=== PATIENT | female | born 1960 | race Caucasian/White ===

== ENCOUNTER → 2021-08-14 13:19 | Outpatient (BNVA) | payer OTHER, SELFPAY | PROVIDERS: Visit Provider Nurse Practitioner | DX: G31.09 Other frontotemporal neurocognitive disorder (principal); F02.80 Dementia in other diseases classified elsewhere, unspecified severity, without behavioral disturbance, psychotic disturbance, mood disturbance, and anxiety; R45.1 Restlessness and agitation | CPT/HCPCS: 99203; 99204 ==

== ENCOUNTER 2021-08-17 08:35 | Emergency (ER) | payer OTHER, SELFPAY ==
--- NOTE | 2021-08-17 08:42 | ED_ITS ---
HPI - Abdominal Pain General: Chief Complaint: Abdominal Pain Stated Complaint: BOWEL PROBLEMS/PSYCH Time Seen by Provider: 08/17/21 08:38 History of Present Illness: HPI narrative: 61-year-old female with a history of early frontal lobe dementia presents to the emergency room with her . Main complaint is constipation. He states she has not had bowel movement for several days recently started new medication and is on Seroquel which actually seems to be making worse they have tried MiraLAX and Pepto-Bismol with no results. Patient and her recently moved to this area from [place] they are currently living in a hotel waiting to take possession of their home. She not recently been ill with fever sweats or chills although according to the her normal temperature is 97 and her temp at home has been 99 even when she perceived to be a fever. She is not complaining any dysuria urgency or frequency there has been no vomiting she has had minimal results with the attempts to stimulate bowel movement. No reports of chest pain. Patient is not able to give much in terms of answers for questions. MD elicited complaint: abdominal pain Pertinent past history: constipation and other (Dementia) Onset (ago): day(s) Pain Consistency: intermittent Quality: cramping Exacerbating factors: nothing Relieving factors: nothing Associated Symptoms: Reports anorexia, bloating, change in bowel habits, constipation, GI cramping and poor appetite; Denies belching, change in stool character, chills, coffee ground emesis, diarrhea, dyspepsia, dysuria, excessive flatus, fever(s), heartburn, hematochezia, hematuria, hematemesis, fecal incontinence, loose stools, melena, nausea, syncope and vomiting Review of Systems Const: Denies: fever(s) or chills ENMT: Denies: throat pain, ear or mastoid pain, nasal discharge or nasal congestion Card: Denies: syncope Resp: Denies: dyspnea, productive cough or non-productive cough GI: Reports: constipation, bloating, GI cramping and change in bowel habits; Denies: nausea, vomiting, hematemesis, coffee ground emesis, heartburn, diarrhea, belching, excessive flatus, fecal incontinence, change in stool character, hematochezia or melena : Denies: dysuria or hematuria Skin/Breast: Denies: rash or pruritus PFSH ED PFSH: Medical History Frontal lobe dementia Family History Grandfather Diabetes Grandmother Diabetes Social History Smoking and tobacco status: never smoked Physical Exam Const: COMMON NORMALS: no acute distress GENERAL APPEARANCE: cooperative and comfortable ORIENTATION/CONSCIOUSNESS: Yes awake HENMT: COMMON NORMALS: normocephalic, atraumatic and hearing grossly normal bilaterally HEAD & SCALP: normocephalic and atraumatic Neck/C-Spine: COMMON NORMALS: no JVD Resp: COMMON NORMALS: normal respiratory effort, No retractions, No use of accessory muscles and clear to auscultation bilaterally AUSCULTATION: clear to auscultation bilaterally Cardio: COMMON NORMALS: no JVD, regular rate, regular rhythm and No murmurs present (Cardio) RATE: regular rate RHYTHM: regular rhythm GI: COMMON NORMALS: Soft to palpation and No hepatosplenomegaly present A USCULTATION: Yes normoactive bowel sounds PALPATION: Yes Soft to palpation, No Tenderness to palpation present (GI), No Guarding due to palpation present (GI) and Yes No hepatosplenomegaly present Extremity: COMMON NORMALS: normal to inspection, capillary refill normal, no clubbing, cyanosis or edema, no calf tenderness and no pedal edema Skin: COMMON NORMALS: no rashes or lesions noted GENERAL SKIN EXAM: no rashes or lesions noted Course Vital Signs: Vital signs: Vital Signs Temperature 99.2 F 08/17/21 12:15 Pulse Rate 92 08/17/21 15:00 Respiratory Rate 16 08/17/21 15:00 Blood Pressure 119/65 08/17/21 12:15 Pulse Oximetry 100 08/17/21 15:00 MDM - Abdominal Pain MDM Narrative: Medical decision making narrative: Patient has urinary retention as well as significant constipation there is also question of some swelling soft tissue fullness between the sacrum and the rectosigmoid region. Some of it may be caused by irritation from the constipation. We did place a Tobias and got out 1500 mL however with enema we were not able to get any results. We made plans to discharge patient home to use mag citrate for further relief of constipation the patient began to have worsening sundowning symptoms. Initially gave the usual antipsychotic she has been prescribed she had only minimal improvement with this and at times became even combative her was trying to help her off the bed and she fell on the floor he called to us we were able to get her up she had no evidence of an injury on reexamination. Sitter was placed on the patient patient was placed in reverse Trendelenburg position in bed to prevent further falls with the rails up. Were going to make arrangements for [facility]. She will need adjustments to her medications for her behaviors as well as the side effect she is getting on the current medication regimen. Care turned over to Dr. Cano at change of shift we are still looking for [facility] placement. Care assumed this morning and 08/18/2021 at 6 AM. [facility] placement has been found. We will transfer due to lack of [facility] at our facility. Patient doing well at this point Tobias has been removed she is not had any further urinary retention. Lab Data: Labs: Lab Results 08/17/21 08/17/21 08/17/21 09:11 09:11 09:11 WBC 11.1 10^3/uL H 10 ^3/uL (4.0-10.0) RBC 5.61 10^6/uL H 10 ^6/uL (4.1-5.3) Hgb 12.0 g/dL g/dL (11.5-15.3) Hct 37.3 % % (37.0-47.0) MCV 66.5 fl L fl (81-99) MCH 21.4 pg L pg (28.0-34.0) MCHC 32.2 g/dL g/dL (30.0-36.0) RDW 14.3 % % (12.1-15.1) Plt Count 190 10^3/cmm 10^3 /cmm (130-400) MPV 10.5 fL H fL (7.4-10.4) Neut % (Auto) 83.9 % % Lymph % (Auto) 7.4 % % [place] % (Auto) 8.0 % % Eos % (Auto) 0.1 % % Baso % (Auto) 0.1 % % Neut # (Auto) 9.29 10^3/uL H 10 ^3/uL (1.8-7.7) Lymph # (Auto) 0.8 10^3/uL 10^3/ uL (0.8-4.8) [place] # (Auto) 0.9 10^3/uL 10^3/ uL (0.2-0.9) Eos # (Auto) 0.0 10^3/uL 10^3/ uL (0.0-0.8) Baso # (Auto) 0.0 10^3/uL 10^3/ uL (0.0-0.1) Nucleated RBC % (a uto) 0 % % Nucleated RBCs # 0.0 /100WBC /100W BC Sodium 138 mmol/L mmol/L (136-145) Potassium 3.9 mmol/L mmol/L (3.5-5.1) Chloride 98 mmol/L mmol/L (98-107) Carbon Dioxide 29 mmol/L mmol/L (22-29) Anion Gap 14.9 (5-19) BUN 11 mg/dL mg/dL (8-23) Creatinine 0.5 mg/dL mg/dL (0.5-0.9) GFR Calculation 125.0 mL/min mL/m in (90-130) Glucose 104 mg/dL mg/dL (65-115) Calculated Osmolal ity 286 mOsm/kg mOsm/ kg (285-295) Lactic Acid 1.0 mmol/L mmol/L (0.5-2.2) Calcium 9.2 mg/dL mg/dL (8.5-10.5) Total Bilirubin 1.1 mg/dL mg/dL (0.15-1.2) AST 26 U/L U/L (0-32) ALT 13 U/L U/L (0-33) Alkaline Phosphata se 71 IU/L IU/L (35-105) Total Protein 7.0 g/dL g/dL (6.6-8.7) Albumin 4.3 g/dL g/dL (3.5-5.2) Globulin 2.7 g/dL g/dL (1.3-4.6) Lipase 26 U/L U/L (13-60) TSH Urine Color Urine Appearance Urine pH Ur Specific Gravit y Urine Protein Urine Glucose (UA) Urine Ketones Urine Blood Urine Nitrate Urine Bilirubin Urine Urobilinogen Ur Leukocyte Mala ase Salicylates Acetaminophen SARS-CoV-2 Ag (Rap id) 08/17/21 08/17/21 08/17/21 09:11 12:19 18:15 WBC RBC Hgb Hct MCV MCH MCHC RDW Plt Count MPV Neut % (Auto) Lymph % (Auto) [place] % (Auto) Eos % (Auto) Baso % (Auto) Neut # (Auto) Lymph # (Auto) [place] # (Auto) Eos # (Auto) Baso # (Auto) Nucleated RBC % (a uto) Nucleated RBCs # Sodium Potassium Chloride Carbon Dioxide Anion Gap BUN Creatinine GFR Calculation Glucose Calculated Osmolal ity Lactic Acid Calcium Total Bilirubin AST ALT Alkaline Phosphata se Total Protein Albumin Globulin Lipase TSH 0.60 uIU/mL uIU/m L (0.27-4.20) Urine Color Yellow (Yellow) Urine Appearance Clear (CLEAR) Urine pH 5 (5-7) Ur Specific Gravit y 1.015 (1.005-1.030) Urine Protein Neg (Negative) Urine Glucose (UA) Norm (Normal) Urine Ketones Negative (Negative) Urine Blood Neg (Negative) Urine Nitrate Negative (Negative) Urine Bilirubin Neg (Negative) Urine Urobilinogen Norm mg/dL mg/dL (Negative) Ur Leukocyte Mala ase Negative (Negative) Salicylates 1.5 mg/dL L mg/dL (3-10) Acetaminophen 15.4 ug/mL ug/mL (10-30) SARS-CoV-2 Ag (Rap id) Negative (Negative) Discharge Plan Discharge Patient Disposition: Xfer Psychiatric Hosp Clinical Impression: Frontal lobe dementia, Rectal mass, Constipation, Urinary retention, Dementia with behavioral disturbance Condition: Stable Discharge Diet: Clear Liquid Discharge Activity: Resume usual activity Activity Restrictions/Additional Instructions: Liquid diet for 24 to 48 hours and advance as tolerated. assistant front desk manager will make arrangements for follow-up with Dr. Walsh who can help further evaluate the findings on today's CT. Coding Level of Care Code ED Launchman for Fabiola Fwd Exam Comprehensive
[2021-08-17 08:44] VITALS: BP 108/70; PULSE 109; RESP 16; TEMP 37.2; O2SAT 98
--- NOTE | 2021-08-17 08:55 | CT_ITS ---
WS: [id number] CT ABDOMEN AND PELVIS WITH CONTRAST HISTORY: Abdominal pain and constipation TECHNIQUE: Imaging performed of the abdomen and pelvis with IV contrast. Single phase imaging of the abdomen. Coronal and sagittal reformats are submitted. All CT scans at [facility] use at [address] one of these dose optimization techniques: automated exposure control; mA and/or kV adjustment per patient size (includes targeted exams where dose is matched to clinical indication); or iterative re construction. IV CONTRAST: Omnipaque 300; 95 mL IV. Oral contrast: No DLP: 889.79 mGy.cm COMPARISON: None available. Lower thorax: Lung bases are clear. Heart is normal size. No hiatal hernia. Liver/biliary system: Normal size liver. There are numerous scattered subcentimeter and too small to characterize hypodensities within the liver. No prior studies for comparison. No bile duct dilatation . Portal vein is normal. Gallbladder: Normal. No gallstones or wall thickening. No pericholecystic fluid. Pancreas: Normal size pancreas and pancreatic duct. No adjacent inflammation. Spleen: Normal size spleen. No mass or infarct. Adrenal glands: Normal. Right kidney: Normal. Left kidney: Normal. Aorta: Normal. Lymphadenopathy: Cluster of lymph nodes in the LEFT pelvis measures 10 x 21 mm. Free fluid: There is a small amount of free fluid in the pelvis and along the LEFT paracolic gutter. GI tract: There is increased density within the colon. Oral contrast was not provided. This may be du e to prior CT obtained outside institution or oral medicine such as Maalox or antacids. Distention of the small bowel the LEFT upper abdomen. There is confluent loops of small bowel in the LEFT upper ab domen which cannot be very well evaluated. The appendix is not definitely visualized. There is diffus e moderate constipation. Inspissated fecal material throughout the colon. At the rectum there are num erous loops of bowel extending distally. Rectocele is likely. There is also significant soft tissue t hickening circumferentially surrounding the rectum and extending into the presacral space. Abdominal wall: Unremarkable abdominal wall. No hernia. Pelvis: Markedly distended urinary bladder. Bladder is distended and measures 13.4 cm in length. No i ntraluminal filling defect. Bones: Unremarkable. CT/CT abdomen pelvis w con* [id number] IMPRESSION: 1. Extensive constipation and obstipation with rectocele likely. 2. There is extensive soft tissue thickening surrounding the rectum and extend ing into the presacral space. Consider malignancy such as a rectal or COLUMNIST/COMMENTATOR carci noma. Small cluster of mildly enlarged lymph nodes in the LEFT pelvis. 3. Small amount of ascites. 4. Numerous low-attenuation lesions within the liver. These are too small to c haracterize. Differential includes small hepatic cysts versus metastases metast atic nodules. 5. Coqui distended urinary bladder. Notified Peyman Jimenez DO at 08/17/2021 10:16 AM.
[2021-08-17 09:32] LABS: Basophils % 0.1 %; Eosinophils % 0.1 %; Hematocrit 37.3 % (37.0-47.0); Lymphocytes # 0.8 10^3/uL (0.8-4.8); Lymphocytes % 7.4 %; Mean Corpuscular HGB Conc 32.2 g/dL (30.0-36.0); Mean Corpuscular Hemoglobin 21.4 pg (28.0-34.0); Mean Corpuscular Volume 66.5 fl (81-99); Mean Platelet Volume 10.5 fL (7.4-10.4); Monocytes # 0.9 10^3/uL (0.2-0.9); Neutrophils # 9.29 10^3/uL (1.8-7.7); Neutrophils % 83.9 %; Nucleated Red Blood Cells % 0 %; Platelet Count 190 10^3/cmm (130-400); Red Blood Count 5.61 10^6/uL (4.1-5.3); Red Cell Distribution Width 14.3 % (12.1-15.1); White Blood Count 11.1 10^3/uL (4.0-10.0)
[2021-08-17 09:50] LABS: Alanine Aminotransferase 13 U/L (0-33); Albumin Level 4.3 g/dL (3.5-5.2); Alkaline Phosphatase 71 IU/L (35-105); Anion Gap 14.9 (5-19); Aspartate Amino Transferase 26 U/L (0-32); Blood Urea Nitrogen 11 mg/dL (8-23); Calcium 9.2 mg/dL (8.5-10.5); Carbon Dioxide 29 mmol/L (22-29); Chloride 98 mmol/L (98-107); Globulin 2.7 g/dL (1.3-4.6); Glucose 104 mg/dL (65-115); Lipase 26 U/L (13-60); Osmolality Calculated 286 mOsm/kg (285-295); Potassium 3.9 mmol/L (3.5-5.1); Sodium 138 mmol/L (136-145); Total Bilirubin 1.1 mg/dL (0.15-1.2)
[2021-08-17] MEDS: iohexol 300 mg/mL 100 mL Btl IV (10:00)
[2021-08-17] MEDS: ondansetron 2 mg/ML SDV 2 mL 4 MG IVP (10:41)
[2021-08-17] MEDS: lidocaine 2% Urojet 20 mL TOPICAL (11:13)
[2021-08-17] MEDS: ketorolac 30 mg/mL INJ IM (12:13)
[2021-08-17 12:15] VITALS: BP 119/65; PULSE 78; RESP 16; TEMP 37.3; O2SAT 97
[2021-08-17 12:25] LABS: Add Urine Microscopic? NO; Charge for UA Resulting for Rev
[2021-08-17 12:33] LABS: Bilirubin Urine Neg (Negative); Blood Urine Neg (Negative); Glucose Urine UA Norm (Normal); Ketones Urine Negative (Negative); Leukocyte Esterase Urine Negative (Negative); Nitrate Urine Negative (Negative); Protein Urine Neg (Negative); Specific Gravity, Urine 1.015 (1.005-1.030); Urine Appearance Clear (CLEAR); Urine Color Yellow (Yellow); Urobilinogen Urine Norm (Negative); pH Urine 5 (5-7)
--- NOTE | 2021-08-17 14:08 | DCPLANNER ---
Addendum entered by Betina Cuadra 08/18/21 09:30: Patient was transferred to another facility, family service caseworker called the office of Dr. Walsh, and cancelled the scheduled appointment. customer logistics manager called the patients and informed him that family service caseworker cancelled the appointment. Original Note: customer logistics manager had message to schedule a follow up appointment for patient with Dr. Walsh. customer logistics manager called the office of Dr. Walsh, spoke with Adilene, gave clinic patients information. A follow up appointment was scheduled for Saturday, August 21, 2021 at 1:[address] Walsh. Patient was informed with appointment information.
[2021-08-17 15:00] VITALS: PULSE 92; RESP 16; O2SAT 100
[2021-08-17] MEDS: LORazepam 2 mg/mL INJ 1 mL IM (16:00)
--- NOTE | 2021-08-17 16:00 | PC.NURSE ---
upon discharge instruction pt became verbally and emotionally distressed. pt became very paranoid, thinking is trying to lock her away to someone else. pt caused scene in hallway and was taken back to room. ER physican notified and med order recieved.
--- NOTE | 2021-08-17 17:00 | PC.PHAR ---
PTS STATES THE PT DIDNT GET THE RX FOR THE DIAZEPAM 10MG FROM DR LESLIE-PTS STATES THE PT HASNT STARTED TAKING THE DIVALPROEX DR 250MG TID YET-
[2021-08-17 17:59] LABS: Acetaminophen 15.4 ug/mL (10-30); Salicylate 1.5 mg/dL (3-10)
[2021-08-17 18:43] LABS: SARS Covid-2 Antigen Negative (Negative)
[2021-08-17] MEDS: quetiapine 100 mg Tablet PO (20:01)
[2021-08-18] MEDS: LORazepam 2 mg/mL INJ 1 mL IM (02:44)
[2021-08-18] MEDS: haloperidol inj 5 mg/mL INJ 1 mL IVP (03:00)
--- NOTE | 2021-08-18 03:00 | PC.NURSE ---
PT YELLING OUT, ACCUSING STAFF OF PHYSICAL HARM. PT DIFFICULT TO REDIRECT, ATIVAN 2 MG IM ADMINISTERED WITHOUT INCIDENT.
[2021-08-18 07:39] VITALS: BP 95/70; PULSE 85; RESP 15; O2SAT 95
== END 2021-08-18 07:42 ==
PROVIDERS: Emergency Provider Family Medicine
DX: K59.00 Constipation, unspecified (principal); R33.9 Retention of urine, unspecified; K62.9 Disease of anus and rectum, unspecified; G31.09 Other frontotemporal neurocognitive disorder; F02.81 Dementia in other diseases classified elsewhere, unspecified severity, with behavioral disturbance; Z20.822 Contact with and (suspected) exposure to COVID-19
CPT/HCPCS: 36415; 45915; 51702; 51798; 74177; 80053; 80307; 81003; 83605; 83690; 84443; 85025; 87040; 87426; 96372; 96374; 96375; 99284; J1630; J1885; J2060; J2405; Q9967

== ENCOUNTER 2021-09-07 21:03 | Emergency (ER) | payer OTHER, SELFPAY ==
[2021-09-07 21:08] VITALS: BP 98/65; PULSE 100; RESP 18; TEMP 36.2; O2SAT 98; BMI 20.9
--- NOTE | 2021-09-07 21:19 | W.ED.PSYCH ---
HPI - Psych General: Chief Complaint: Psychiatric Symptoms Stated Complaint: MHE Time Seen by Provider: 09/07/21 21:08 Source: patient, family and EMS Mode of arrival: EMS Limitations: no limitations History of Present Illness: HPI Narrative: 61-year-old female has a history of dementia. is here and states that they have just moved to the house 2 days ago and she has been having increasing agitation at night. He states is been try to give her Seroquel but her agitation just increases. He has an appointment psychiatrist along with her PCP next week. She is made no homicidal suicidal statements she is calm and collected here. She will tell me her name and where she is but she does have dementia and has some confusion at times. No injuries. Review of Systems Const: Denies: fever(s), chills, body aches or change in appetite Eyes: Denies: blurry vision or eye discomfort ENMT: Denies: throat pain or dental pain Card: Denies: chest pain Resp: Denies: dyspnea GI: Denies: abdominal pain, nausea, vomiting or diarrhea : Denies: dysuria Musc: Denies: neck pain or back pain Skin/Breast: Denies: rash Neuro: Denies: headache(s) Psych: Reports: mood swings Jesse/Lymph: Denies: easy bruising All/Imm: Denies: urticaria PFS ED PFSH: Medical History (Updated 09/07/21 @ 21:37 by Wilfredo Trevino MD) Frontal lobe dementia Psychiatric care Family History Grandfather Diabetes Grandmother Diabetes Social History Smoking and tobacco status: never smoked Physical Exam Const: COMMON NORMALS: no acute distress, healthy appearing and alert; negative for patient oriented x3 ORIENTATION/CONSCIOUSNESS: Yes oriented to person and Yes oriented to place; not oriented to time HENMT: COMMON NORMALS: normocephalic and atraumatic HEAD & SCALP: normocephalic and atraumatic Eye: COMMON NORMALS: Equal, round and reactive pupils present and EOMs intact bilaterally PUPIL: Yes Equal, round and reactive pupils present Neck/C-Spine: COMMON NORMALS: full ROM and supple Chest: COMMONS NORMALS: normal inspection of the chest and normal palpation of entire chest wall Resp: COMMON NORMALS: normal respiratory effort, No retractions, No use of accessory muscles and clear to auscultation bilaterally AUSCULTATION: clear to auscultation bilaterally Cardio: COMMON NORMALS: regular rate, regular rhythm and No murmurs present (Cardio) RATE: regular rate RHYTHM: regular rhythm GI: COMMON NORMALS: Normal to inspection, nondistended, normoactive bowel sounds present, Soft to palpation, non-tender and no masses PALPATION: Yes Soft to palpation Extremity: COMMON NORMALS: normal to inspection and full ROM Neuro: COMMON NORMALS: moves all extremities and no focal motor deficits; negative for patient oriented x3 SENSORIUM/ORIENTATION: Yes alert, Yes oriented to person, Yes oriented to place and No oriented to time Psych: COMMON NORMALS: mental status grossly normal, Normal thought process present and cooperative THOUGHT PROCESS: Normal thought process present Skin: COMMON NORMALS: no rashes or lesions noted and no wounds GENERAL SKIN EXAM: no rashes or lesions noted Course Vital Signs: Vital signs: Vital Signs Temperature 97.7 F 09/07/21 22:24 Pulse Rate 80 09/07/21 22:24 Respiratory Rate 18 09/07/21 22:24 Blood Pressure 97/55 09/07/21 22:24 Pulse Oximetry 99 09/07/21 22:24 MDM - Psych MDM Narrative: Medical decision making narrative: Patient presents here with agitation likely due to her dementia and moving into a new residence she is calm here and is here and she is stable for discharge with her she had no self-harm and she has follow-up next week she is return if worsening. Discharge Plan Discharge Patient Disposition: Home Clinical Impression: Frontal lobe dementia Condition: Stable Prescriptions: No Action quetiapine [Seroquel] 100 mg tablet 100 mg PO BEDTIME RF: 0 diazepam [Valium] 10 mg tablet 10 mg PO DAILY MDD 1 PRN (Reason: agitation) Qty: 10 RF: 0 quetiapine [Seroquel] 50 mg tablet 50 mg PO Q4H Qty: 180 RF: 2 quetiapine [Seroquel] 25 mg tablet 25 mg PO DAILY PRN (Reason: withdrawal symptoms) Qty: 30 RF: 2 magnesium citrate Solution 150 ml PO BID PRN (Reason: constipation) Qty: 296 RF: 0 Miralax 17 gram/dose powder 17 g PO DAILY Qty: 510 RF: 0 multivitamin Tablet 1 tab PO DAILY RF: 0 Colace 100 mg Capsule 100 mg PO DAILY RF: 0 divalproex 250 mg tablet,delayed release (DR/EC) 250 mg PO TID RF: 0 Discharge Orders: Discharge ED (Routine); Ordered 09/07/21 Ordered By: Wilfredo Trevino Discharge Diet: Advance as tolerated Discharge Activity: Resume usual activity Patient Instructions: Dementia (ED) Coding Level of Care Code ED Cardio Tech for Fabiola Fwd Exam Comprehensive
[2021-09-07] MEDS: haloperidol inj 5 mg/mL INJ 1 mL IM (21:53)
[2021-09-07 22:24] VITALS: BP 97/55; PULSE 80; RESP 18; TEMP 36.5; O2SAT 99
== END 2021-09-07 22:45 | disposition home or self-care (01) ==
PROVIDERS: Emergency Provider Emergency Medicine
DX: G31.09 Other frontotemporal neurocognitive disorder (principal); F02.80 Dementia in other diseases classified elsewhere, unspecified severity, without behavioral disturbance, psychotic disturbance, mood disturbance, and anxiety
CPT/HCPCS: 96372; 99283; J1630

== ENCOUNTER 2021-09-29 12:23 | Emergency (ER) | payer OTHER, SELFPAY ==
[2021-09-29 13:06] VITALS: BP 96/67; PULSE 76; RESP 18; TEMP 36.4; O2SAT 99; BMI 19.7
--- NOTE | 2021-09-29 13:22 | W.ED.HEATRA ---
HPI - Head Injury General: Chief complaint: Head Injury Stated complaint: Injury to head from fall yesterday evening Time Seen by Provider: 09/29/21 13:22 PFSH ED PFSH: Medical History Frontal lobe dementia Psychiatric care Family History Grandfather Diabetes Grandmother Diabetes Social History Smoking and tobacco status: never smoked Course Vital Signs: Vital signs: Vital Signs Temperature 97.5 F L 09/29/21 13:06 Pulse Rate 76 09/29/21 13:06 Respiratory Rate 18 09/29/21 13:06 Blood Pressure 96/67 09/29/21 13:06 Pulse Oximetry 99 09/29/21 13:06 Discharge Plan Discharge Prescriptions: No Action quetiapine [Seroquel] 25 mg tablet 25 mg PO DAILY PRN (Reason: withdrawal symptoms) Qty: 30 RF: 2 haloperidol lactate [Haldol] 5 mg/mL solution 5 mg IM Q30M PRN (Reason: psychosis) Qty: 10 RF: 0 quetiapine [Seroquel XR] 300 mg tablet extended release 24 hr 300 mg PO BID Qty: 90 RF: 3 haloperidol 5 mg tablet 5 mg PO .Q6 PRN (Reason: agitation) Qty: 60 RF: 0 diazepam [Valium] 10 mg tablet 10 mg PO DAILY PRN (Reason: agitation) RF: 0 magnesium citrate Solution 150 ml PO BID PRN (Reason: constipation) Qty: 296 RF: 0 Miralax 17 gram/dose powder 17 g PO DAILY Qty: 510 RF: 0 multivitamin Tablet 1 tab PO DAILY RF: 0 Colace 100 mg Capsule 100 mg PO DAILY RF: 0 Coding Level of Care Code ED Chief Analytics Officer for Fabiola Melgar
--- NOTE | 2021-09-29 13:29 | CT_ITS ---
WS: [id number] CT HEAD TECHNIQUE: Noncontrast CT of the head obtained from the skullbase to the vertex. CLINICAL INFORMATION: fall closed head injury COMPARISON: None. DLP: 839.[address] scans at [facility] use at least one of these dose optimization techniques: automated e xposure control; mA and/or kV adjustment per patient size (includes targeted exams where dose is matc hed to clinical indication); or iterative reconstruction. FINDINGS: No evidence of intracranial hemorrhage or mass effect. Ventricular system and basal cisterns are hare nt. Mild small vessel changes with mild parenchymal volume loss. Chronic lacunar infarcts left latera l basal ganglia. No extra-axial fluid collections. No evidence of mass or mass effect. Normal cormier-wh ite differentiation. Paranasal sinuses and mastoid air cells are well aerated. Soft tissue edema overlying the left fronta l calvarium. No underlying fractures. CT/CT head wo con* [id number] IMPRESSION: 1. No evidence of intracranial hemorrhage or mass effect. 2. Mild small vessel changes. Mild parenchymal volume loss. 3. Soft tissue edema overlying the left frontal calvarium. No visualized fract ures. 4. No acute intracranial findings.
--- NOTE | 2021-09-29 13:29 | XR_ITS ---
WS: [id number] Cervical spine, AP and lateral views, 09/29/2021 Clinical Data: fall Comparison: None. Findings: No compression fractures are seen. There is disc narrowing at C5-C6 and C6-C7 with osteophy te formation. There is no prevertebral soft tissue swelling. The lateral view of the odontoid is unre markable.. The soft tissues of the neck and the lung apices are normal. XR/XR cervical spine 3V* [id number] Impression: 1. Negative for compression fracture. 2. Degenerative disc narrowing at C5-C6 and C6-C7 with degenerative osteophytes .
--- NOTE | 2021-09-29 13:54 | ED_ITS ---
HPI - Head Injury General: Chief complaint: Head Injury Stated complaint: Injury to head from fall yesterday evening Time Seen by Provider: 09/29/21 13:22 History of Present Illness: HPI Narrative: 61-year-old female has a history of Alzheimer's dementia is currently in a detention. She evidently had a fall last night. There is no reported loss of consciousness. Brought in by private vehicle with her . Not really able to get much history from her she does not report any particular pain other than referring to the obvious hematoma on her left frontal area small abrasion there as well. reported her last tetanus shot to be 10 years ago or longer. MD Complaint: head injury and fall Onset (ago): hour(s) Mechanism of Injury: fall Place: other (penit[facility]iary) Loss of Consciousness: no Location of injury: frontal (Left) Severity: mild Radiation: none Other Injuries: none Associated symptoms: Reports weakness; Deny amnesia, confusion, nausea, neck pain, numbness, syncope, tingling, vertigo, visual changes or vomiting Review of Systems General: Reports: Other (Limited reliability on review of systems due to her Alzheimer's dementia) Const: Denies: fever(s), chills or body aches ENMT: Denies: throat pain, ear or mastoid pain, nasal discharge or nasal congestion Card: Denies: syncope Resp: Denies: dyspnea, productive cough or non-productive cough GI: Denies: nausea or vomiting : Denies: flank pain, difficulty voiding, dysuria, urinary frequency or urinary urgency Musc: Denies: neck pain Skin/Breast: Denies: rash or pruritus Neuro: Denies: vertigo or confusion PFS ED PFSH: Medical History Frontal lobe dementia Psychiatric care Family History Grandfather Diabetes Grandmother Diabetes Social History Smoking and tobacco status: never smoked Physical Exam Const: COMMON NORMALS: no acute distress GENERAL APPEARANCE: cooperative and comfortable HENMT: COMMON NORMALS: normocephalic and hearing grossly normal bilaterally HEAD & SCALP: normocephalic OTHER: Right frontal hematoma with small abrasion. Some bruising present Eye: COMMON NORMALS: Equal, round and reactive pupils present, EOMs intact bilaterally, conjunctivae normal and no scleral icterus CONJUNCTIVA: Yes conjunctivae normal PUPIL: Yes Equal, round and reactive pupils present Neck/C-Spine: COMMON NORMALS: full ROM, no lymphadenopathy, supple and no JVD Lymph: LYMPHATIC: no lymphadenopathy noted and no lymphedema noted Resp: COMMON NORMALS: normal respiratory effort, No retractions, No use of accessory muscles and clear to auscultation bilaterally AUSCULTATION: clear to auscultation bilaterally Cardio: COMMON NORMALS: no JVD, regular rate, regular rhythm and No murmurs present (Cardio) RATE: regular rate RHYTHM: regular rhythm GI: COMMON NORMALS: Soft to palpation and No hepatosplenomegaly present AUSCULTATION: Yes normoactive bowel sounds PALPATION: Yes Soft to palpation, No Tenderness to palpation present (GI), No Guarding due to palpation present (GI) and Yes No hepatosplenomegaly present Extremity: COMMON NORMALS: normal to inspection, capillary refill normal, no clubbing, cyanosis or edema, no calf tenderness and no pedal edema Skin: COMMON NORMALS: no rashes or lesions noted GENERAL SKIN EXAM: no rashes or lesions noted Course Vital Signs: Vital signs: Vital Signs Temperature 97.5 F L 09/29/21 13:06 Pulse Rate 71 09/29/21 14:22 Respiratory Rate 16 09/29/21 14:22 Blood Pressure 100/69 09/29/21 14:22 Pulse Oximetry 95 09/29/21 14:22 MDM - Head Injury MDM Narrative: Medical decision making narrative: Imaging reviewed with the . No acute injury on cervical spine CT head negative. Tetanus updated discharge home [id number] topical antibiotics to the abrasion daily until healed. Discharge Plan Discharge Patient Disposition: Home Clinical Impression: Fall, Frontal lobe dementia, Closed head injury Condition: Stable Prescriptions: No Action quetiapine [Seroquel] 25 mg tablet 25 mg PO DAILY PRN (Reason: withdrawal symptoms) Qty: 30 RF: 2 haloperidol lactate [Haldol] 5 mg/mL solution 5 mg IM Q30M PRN (Reason: psychosis) Qty: 10 RF: 0 quetiapine [Seroquel XR] 300 mg tablet extended release 24 hr 300 mg PO BID Qty: 90 RF: 3 haloperidol 5 mg tablet 5 mg PO .Q6 PRN (Reason: agitation) Qty: 60 RF: 0 diazepam [Valium] 10 mg tablet 10 mg PO DAILY PRN (Reason: agitation) RF: 0 magnesium citrate Solution 150 ml PO BID PRN (Reason: constipation) Qty: 296 RF: 0 Miralax 17 gram/dose powder 17 g PO DAILY Qty: 510 RF: 0 multivitamin Tablet 1 tab PO DAILY RF: 0 Colace 100 mg Capsule 100 mg PO DAILY RF: 0 Discharge Orders: Discharge ED (Routine); Ordered 09/29/21 Ordered By: Peyman Jimenez Referrals: Errol Walsh MD [Primary Care Provider] - Discharge Diet: Usual diet Discharge Activity: Resume usual activity Patient Instructions: Opioid Safety Activity Restrictions/Additional Instructions: Follow-up with your primary care. Coding Level of Care Code ED Financial Sales Representative for Fabiola Fwd Exam Comprehensive
[2021-09-29] MEDS: tetanus-dipt-pertussis 0.5 mL SDV IM (14:17)
[2021-09-29 14:22] VITALS: BP 100/69; PULSE 71; RESP 16; O2SAT 95
[2021-09-29] MEDS: acetaminophen 325 mg Tablet 650 MG PO (15:11)
== END 2021-09-29 15:33 | disposition home or self-care (01) ==
PROVIDERS: Emergency Provider Family Medicine; PCP Internal Medicine
DX: S09.8XXA Other specified injuries of head, initial encounter (principal); G30.9 Alzheimer's disease, unspecified; G31.09 Other frontotemporal neurocognitive disorder; F02.80 Dementia in other diseases classified elsewhere, unspecified severity, without behavioral disturbance, psychotic disturbance, mood disturbance, and anxiety; W19.XXXA Unspecified fall, initial encounter; Z23 Encounter for immunization
CPT/HCPCS: 70450; 72040; 90471; 90715; 99283

== ENCOUNTER 2021-10-09 12:18 | Emergency (ER) | payer OTHER, SELFPAY ==
--- NOTE | 2021-10-09 12:37 | XRR_ITS ---
PROCEDURE INFORMATION: Exam: XR Right Hip Exam date and time: 10/09/2021 12:37 PM Age: 61 years old Clinical indication: Pain and injury or trauma; Fall; Blunt trauma (contusions or hematomas); Hip pain; Right hip TECHNIQUE: Imaging protocol: XR Right hip. Views: 1 view hip with pelvis when performed. COMPARISON: CT abdomen pelvis w con* [id number] 08/17/2021 9:56 AM FINDINGS: Bones/joints: Unremarkable. No acute fracture. Soft tissues: Unremarkable. XR/XR hip RT 2-3V wo/w pel* [id number] IMPRESSION: No acute findings. Radiation Dose CTDIVOL = (mGy): DLP = (mGy-cm)
[2021-10-09 12:59] VITALS: BP 92/65; PULSE 99; RESP 15; TEMP 36.7; O2SAT 97; BMI 19.7
--- NOTE | 2021-10-09 13:54 | ED_ITS ---
Documented by User: Ruthann Garcia PA-C 10/09/21 16:26 HPI - Fall General: Chief Complaint: Fall Stated Complaint: Injury to Right hip and Side from fall Time Seen by Provider: 10/09/21 13:46 Source: family () Limitations: altered mental status (dementia) History of Present Illness: HPI Narrative: Cher is a 61-year-old female who presents to the ER with today after he got a call from the assisted that said patient fell out of bed during the night. Patient has significant Alzheimer's dementia and lives in a assisted. reports they were here last week after she fell and hit the left side of her head. At that time she had a negative CT of her head and has had bruising but is healing. When got to the assisted this morning however she has a new spot on the right side of her head that is red. She also had a low-grade temp when he got there. He did give her Tylenol and the temperature came down. He reports she also complains off and on of right rib pain and right hip pain. When asked in the ER, patient unable to verbalize her pain at this time. denies any mental status change that he has noted. MD complaint: fall Onset (ago): hour(s) (during the night last night) Fall from: out of bed Fall witnessed: no Place fall occurred: assisted/SNF Loss of consciousness: None Location of injury: head, chest and pelvis Associated symptoms-after fall: Reports chest pain (right lateral ribs); Denies abdominal pain, headache(s) or neck pain Review of Systems General: Reports: 10 or more systems reviewed and unremarkable except in HPI and below Const: Reports: fever(s); Denies: chills or body aches ENMT: Denies: nasal discharge or nasal congestion Card: Reports: chest pain (right lateral ribs); Denies: palpitations Resp: Denies: dyspnea, productive cough or wheezing GI: Denies: abdominal pain, nausea, vomiting, diarrhea or constipation : Denies: dysuria Musc: Reports: extremity pain (right hip) and joint pain (right hip); Denies: neck pain or back pain Skin/Breast: Reports: erythema (right side of forehead) Neuro: Denies: headache(s) Psych: Reports: other (alzheimers dementia) PFSH ED PFSH: Medical History Dementia Psychiatric care Family History Grandfather Diabetes Grandmother Diabetes Social History Smoking and tobacco status: never smoked Physical Exam Const: EXAM LIMITATIONS: altered mental status (baseline alzheimers dementia) GENERAL APPEARANCE: cooperative and comfortable NUTRITIONAL APPEARANCE: thin HENMT: COMMON NORMALS: normocephalic HEAD & SCALP: normocephalic and other (bruising noted to R side of forehead that appears new) Eye: COMMON NORMALS: conjunctivae normal CONJUNCTIVA: Yes conjunctivae normal Neck/C-Spine: COMMON NORMALS: full ROM and no lymphadenopathy Chest: COMMONS NORMALS: normal inspection of the chest and normal palpation of entire chest wall OTHER: pt reported right rib tenderness to however on my exam pt does not complain of any pain to palpation, likely this is skewed by the dementia Resp: COMMON NORMALS: normal respiratory effort and No retractions Cardio: COMMON NORMALS: regular rate and regular rhythm RATE: regular rate RHYTHM: regular rhythm GI: COMMON NORMALS: Normal to inspection, nondistended, normoactive bowel sounds present, Soft to palpation and non-tender PALPATION: Yes Soft to palpation : COMMON NORMALS: Yes no CVA tenderness BLADDER/KIDNEY EXAM: Yes no CVA tenderness Back/Pelvis: COMMON NORMALS: no CVA tenderness LUMBAR SPINE/LOWER BACK: Yes normal to inspection Extremity: COMMON NORMALS: normal to inspection and full ROM Neuro: SENSORIUM/ORIENTATION: Yes other (at baseline) Psych: MOOD & AFFECT: Yes Other affect and mood findings present (at baseline, pt unable to verbalize hx or answer questions) Skin: GENERAL SKIN EXAM: ecchymosis (forehead and around the L eye) and erythema (right side of forehead) Course ED course: Patient is a poor historian given Alzheimer's dementia. Reported to rib and hip pain along with a new spot on the right side of forehead. was told patient did hit her head. We will go ahead and get a CT of the head along with a chest in view of the ribs and a hip x-ray. We will also get a UA as patient's was concerned about low-grade fever this morning. Vital Signs: Vital signs: Vital Signs Temperature 98.1 F 10/09/21 12:59 Pulse Rate 75 10/09/21 16:33 Respiratory Rate 16 10/09/21 16:33 Blood Pressure 123/81 10/09/21 16:33 Pulse Oximetry 100 10/09/21 16:33 MDM - Fall MDM Narrative: Medical decision making narrative: 61-year-old female presents to the ER with today for head contusion, right rib pain and right hip pain after falling out of bed last night. Patient has severe Alzheimer's dementia and lives in a assisted. got a call this morning the patient had fallen out of bed during the night and hit her head on the ground. Patient complained to of right rib and right hip pain in addition to him noticing a contusion on the right side of the forehead. Patient had a recent fall and injured the left side of the forehead and left eye but the right side was an uninjured at that time. also reports when he got there this morning patient had a slight fever of just over 99 which she was concerned about. We went ahead and did a UA straight cath and urine looks okay at this time. Patient CT of the head is normal other than chronic changes. Rib study and hip x-ray are normal. Patient likely has contusions of the hip and ribs given the fall in addition to the forehead. We will do Tylenol alternate with Motrin for pain, reports that helps patient's pain the most. Strict instructions were given with discharge so that assisted can go ahead and give those medications. Patient should follow-up with PCP in 3 to 5 days. Return to the ER with any new or worsening symptoms. Lab Data: Labs: Lab Results 10/09/21 15:15 Urine Color Dark yellow (Yellow) Urine Appearance Clear (CLEAR) Urine pH 5 (5-7) Ur Specific Gravit y 1.020 (1.005-1.030) Urine Protein Neg (Negative) Urine Glucose (UA) Norm (Normal) Urine Ketones Negative (Negative) Urine Blood Neg (Negative) Urine Nitrate Negative (Negative) Urine Bilirubin Neg (Negative) Urine Urobilinogen Norm mg/dL mg/dL (Negative) Ur Leukocyte Mala ase Negative (Negative) Imaging Data^: Other Xray: Radiologist's impression: [address] [address] XRay Report Signed Patient: Cher Child Unit #: [id number] : 1960 Age/Sex: 61 / F ADM Date: 10/09/21 Loc: ER Room/Bed: Attending Dr: Ordering Provider/Ordering MD: Claire Cano MD Date of Service: 10/09/21 Procedure(s): XR hip RT 2-3V wo/w pel* [id number] Accession Number(s): [id number] Report Number: [id number] PROCEDURE INFORMATION: Exam: XR Right Hip Exam date and time: 10/09/2021 12:37 PM Age: 61 years old Clinical indication: Pain and injury or trauma; Fall; Blunt trauma (contusions or hematomas); Hip pain; Right hip TECHNIQUE: Imaging protocol: XR Right hip. Views: 1 view hip with pelvis when performed. COMPARISON: CT abdomen pelvis w con* [id number] 08/17/2021 9:56 AM FINDINGS: Bones/joints: Unremarkable. No acute fracture. Soft tissues: Unremarkable. XR/XR hip RT 2-3V wo/w pel* [id number] IMPRESSION: No acute findings. Radiation Dose CTDIVOL = (mGy): DLP = (mGy-cm) Dictated By: Gabriele Read Signed By: Gabriele Read Signed Date/Time: 10/09/21 1322 DD/ 1237 CT Chest: Radiologist's impression: [address] [place] [address] XRay Report Signed Patient: Cher Child Unit #: [id number] : 1960 Age/Sex: 61 / F ADM Date: 10/09/21 Loc: ER Room/Bed: Attending Dr: Ordering Provider/Ordering MD: Ruthann Garcia Date of Service: 10/09/21 Procedure(s): XR ribs RT mn 3V w CXR1V [id number] Accession Number(s): [id number] Report Number: [id number] PROCEDURE INFORMATION: Exam: XR Right Ribs with PA Chest Exam date and time: 10/09/2021 2:00 PM Age: 61 years old Clinical indication: Pain and injury or trauma; Rib area; Blunt trauma (contusions or hematomas); Chest wall pain; Injury details: --fall, landed on right side, right side rib pain; Additional info: Fell out of bed with rib pain TECHNIQUE: Imaging protocol: XR Right ribs with PA chest. Views: 3 views COMPARISON: CR XR cervical spine 3V* [id number] 09/29/2021 2:08 PM FINDINGS: Lungs: Unremarkable. No consolidation. Pleural spaces: Unremarkable. No pleural effusion. No pneumothorax. Heart/Mediastinum: Unremarkable. No cardiomegaly. Bones/joints: Unremarkable. XR/XR ribs RT mn 3V w CXR1V [id number] IMPRESSION: No acute findings. Radiation Dose CTDIVOL = (mGy): DLP = (mGy-cm) Dictated By: Gabriele Read Signed By: Gabriele Read Signed Date/Time: 10/09/21 1439 DD/ 1400 CT Head: Radiologist's impression: [address] [address] [address] Scan Report Signed Patient: Cher Child Unit #: [id number] : 1960 Age/Sex: 61 / F ADM Date: 10/09/21 Loc: ER Room/Bed: Attending Dr: Ordering Provider/Ordering MD: Ruthann Garcia Date of Service: 10/09/21 Procedure(s): CT head wo con* [id number] Accession Number(s): [id number] Report Number: [id number] WS: [id number] CT HEAD NONCONTRAST HISTORY: fell out of bed and hit head TECHNIQUE: Contiguous axial imaging performed through the brain in 2.5 mm imaging. Bone and soft tissue windows. Sagittal and coronal reformats reviewed. All CT scans at [facility] use at least one of these dose optimization techniques: automated exposure control; mA and/or kV adjustment per patient size (includes targeted exams where dose is matched to clinical indication); or iterative reconstruction. DLP: 838.08 mGy.cm COMPARISON: 09/29/2021 No acute intracranial hemorrhage, midline shift or mass effect. Mild atrophy with no prior infarcts or herniation. Prominent perivascular space involving the inferior LEFT basal ganglia. Very mild chronic microvascular ischemic type changes in the white matter. Ventricles: Normal size with no hydrocephalus. Paranasal sinuses: As visualized are clear. Mastoid air cells: Well pneumatized. Calvarium and scalp: Skull is intact with no soft tissue edema or swelling. CT/CT head wo con* [id number] IMPRESSION: 1. No acute intracranial hemorrhage or edema. 2. Mild atrophy and mild chronic microvascular ischemic disease. Dictated By: Viridiana Villanueva DO Signed By: Viridiana Villanueva DO Signed Date/Time: 10/09/21 1452 DD/ 1449 Critical Care Time Critical Care Time: Critical Care Time: No Discharge Plan Discharge Patient Disposition: Home Clinical Impression: Severe dementia, Acute pain of right hip Fall Qualifiers: Encounter type: initial encounter Qualified Code(s): W19.XXXA - Unspecified fall, initial encounter Contusion of head Qualifiers: Encounter type: initial encounter Contusion of head detail: unspecified part of head Qualified Code(s): S00.93XA - Contusion of unspecified part of head, initial encounter Contusion of rib on right side Qualifiers: Encounter type: initial encounter Qualified Code(s): S20.211A - Contusion of right front wall of thorax, initial encounter Condition: Stable Prescriptions: No Action quetiapine [Seroquel] 25 mg tablet 25 mg PO DAILY PRN (Reason: withdrawal symptoms) Qty: 30 RF: 2 quetiapine [Seroquel XR] 300 mg tablet extended release 24 hr 300 mg PO BID Qty: 90 RF: 3 haloperidol 5 mg tablet 5 mg PO .Q6 PRN (Reason: agitation) RF: 0 haloperidol lactate [Haldol] 5 mg/mL solution 5 mg IM Q30M PRN (Reason: psychosis) RF: 0 diazepam [Valium] 10 mg tablet 10 mg PO DAILY PRN (Reason: agitation) Qty: 30 RF: 3 magnesium citrate Solution 150 ml PO BID PRN (Reason: constipation) Qty: 296 RF: 0 Miralax 17 gram/dose powder 17 g PO DAILY Qty: 510 RF: 0 multivitamin Tablet 1 tab PO DAILY RF: 0 Colace 100 mg Capsule 100 mg PO DAILY RF: 0 Discharge Orders: Discharge ED (Routine); Ordered 10/09/21 Ordered By: Ruthann Garcia Referrals: Errol Walsh MD [Primary Care Provider] - Discharge Diet: Usual diet Discharge Activity: Resume usual activity Patient Instructions: Opioid Safety Activity Restrictions/Additional Instructions: Alternate Tylenol and Motrin for pain. Give 1000 mg of Tylenol alternated with 600 to 800 mg of ibuprofen. Make sure to give ibuprofen or NSAIDs with food. Patient should be on strict fall precautions and closely monitored. Follow-up with PCP in 3 to 5 days. Return to the ER with any new or worsening symptoms. Coding Level of Care Code ED Cigarette Making Machine Catcher for Chg Fwd Exam Comprehensive Documented by User: Peyman Jimenez DO 10/09/21 16:56 HPI - Fall General: Chief Complaint: Fall Stated Complaint: Injury to Right hip and Side from fall Time Seen by Provider: 10/09/21 13:46 PFSH ED PFSH: Medical History Dementia Psychiatric care Family History Grandfather Diabetes Grandmother Diabetes Social History Smoking and tobacco status: never smoked Course 2 Vital Signs: Vital signs: Vital Signs Temperature 98.1 F 10/09/21 12:59 Pulse Rate 75 10/09/21 16:33 Respiratory Rate 16 10/09/21 16:33 Blood Pressure 123/81 10/09/21 16:33 Pulse Oximetry 100 10/09/21 16:33 MDM - Fall MDM Narrative: Medical decision making narrative: Chart reviewed and patient discussed with midlevel. Agree with assessment and plan. Lab Data: Labs: Lab Results 10/09/21 15:15 Urine Color Dark yellow (Yellow) Urine Appearance Clear (CLEAR) Urine pH 5 (5-7) Ur Specific Gravit y 1.020 (1.005-1.030) Urine Protein Neg (Negative) Urine Glucose (UA) Norm (Normal) Urine Ketones Negative (Negative) Urine Blood Neg (Negative) Urine Nitrate Negative (Negative) Urine Bilirubin Neg (Negative) Urine Urobilinogen Norm mg/dL mg/dL (Negative) Ur Leukocyte Mala ase Negative (Negative) Discharge Plan Discharge Patient Disposition: Home Clinical Impression: Severe dementia, Acute pain of right hip Fall Qualifiers: Encounter type: initial encounter Qualified Code(s): W19.XXXA - Unspecified fall, initial encounter Contusion of head Qualifiers: Encounter type: initial encounter Contusion of head detail: unspecified part of head Qualified Code(s): S00.93XA - Contusion of unspecified part of head, initial encounter Contusion of rib on right side Qualifiers: Encounter type: initial encounter Qualified Code(s): S20.211A - Contusion of right front wall of thorax, initial encounter Condition: Stable Prescriptions: No Action quetiapine [Seroquel] 25 mg tablet 25 mg PO DAILY PRN (Reason: withdrawal symptoms) Qty: 30 RF: 2 quetiapine [Seroquel XR] 300 mg tablet extended release 24 hr 300 mg PO BID Qty: 90 RF: 3 haloperidol 5 mg tablet 5 mg PO .Q6 PRN (Reason: agitation) RF: 0 haloperidol lactate [Haldol] 5 mg/mL solution 5 mg IM Q30M PRN (Reason: psychosis) RF: 0 diazepam [Valium] 10 mg tablet 10 mg PO DAILY PRN (Reason: agitation) Qty: 30 RF: 3 magnesium citrate Solution 150 ml PO BID PRN (Reason: constipation) Qty: 296 RF: 0 Miralax 17 gram/dose powder 17 g PO DAILY Qty: 510 RF: 0 multivitamin Tablet 1 tab PO DAILY RF: 0 Colace 100 mg Capsule 100 mg PO DAILY RF: 0 Discharge Orders: Discharge ED (Routine); Ordered 10/09/21 Ordered By: Ruthann Garcia Referrals: Errol Walsh MD [Primary Care Provider] - Discharge Diet: Usual diet Discharge Activity: Resume usual activity Patient Instructions: Opioid Safety Activity Restrictions/Additional Instructions: Alternate Tylenol and Motrin for pain. Give 1000 mg of Tylenol alternated with 600 to 800 mg of ibuprofen. Make sure to give ibuprofen or NSAIDs with food. P atient should be on strict fall precautions and closely monitored. Follow-up with PCP in 3 to 5 days. Return to the ER with any new or worsening symptoms. Coding Level of Care Code ED Cigarette Making Machine Catcher for Fabiola Melgar Exam Comprehensive
--- NOTE | 2021-10-09 14:00 | XRR_ITS ---
PROCEDURE INFORMATION: Exam: XR Right Ribs with PA Chest Exam date and time: 10/09/2021 2:00 PM Age: 61 years old Clinical indication: Pain and injury or trauma; Rib area; Blunt trauma (contusions or hematomas); Chest wall pain; Injury details: --fall, landed on right side, right side rib pain; Additional info: Fell out of bed with rib pain TECHNIQUE: Imaging protocol: XR Right ribs with PA chest. Views: 3 views COMPARISON: CR XR cervical spine 3V* [id number] 09/29/2021 2:08 PM FINDINGS: Lungs: Unremarkable. No consolidation. Pleural spaces: Unremarkable. No pleural effusion. No pneumothorax. Heart/Mediastinum: Unremarkable. No cardiomegaly. Bones/joints: Unremarkable. XR/XR ribs RT mn 3V w CXR1V [id number] IMPRESSION: No acute findings. Radiation Dose CTDIVOL = (mGy): DLP = (mGy-cm)
--- NOTE | 2021-10-09 14:00 | CT_ITS ---
WS: [id number] CT HEAD NONCONTRAST HISTORY: fell out of bed and hit head TECHNIQUE: Contiguous axial imaging performed through the brain in 2.5 mm imaging. Bone and soft tiss ue windows. Sagittal and coronal reformats reviewed. All CT scans at [facility] use at least one of these dose optimization techniques: automated exposure control; mA and/or kV adjustment per pa tient size (includes targeted exams where dose is matched to clinical indication); or iterative recon struction. DLP: 838.08 mGy.cm COMPARISON: 09/29/2021 No acute intracranial hemorrhage, midline shift or mass effect. Mild atrophy with no prior infarcts or herniation. Prominent perivascular space involving the inferi or LEFT basal ganglia. Very mild chronic microvascular ischemic type changes in the white matter. Ventricles: Normal size with no hydrocephalus. Paranasal sinuses: As visualized are clear. Mastoid air cells: Well pneumatized. Calvarium and scalp: Skull is intact with no soft tissue edema or swelling. CT/CT head wo con* [id number] IMPRESSION: 1. No acute intracranial hemorrhage or edema. 2. Mild atrophy and mild chronic microvascular ischemic disease.
[2021-10-09 15:10] VITALS: BP 108/65; PULSE 74; RESP 18; O2SAT 100
[2021-10-09 15:29] LABS: Add Urine Microscopic? NO; Charge for UA Resulting for Rev
[2021-10-09 16:11] LABS: Bilirubin Urine Neg (Negative); Blood Urine Neg (Negative); Glucose Urine UA Norm (Normal); Ketones Urine Negative (Negative); Leukocyte Esterase Urine Negative (Negative); Nitrate Urine Negative (Negative); Protein Urine Neg (Negative); Urine Appearance Clear (CLEAR); Urine Color Dark Yellow (Yellow); Urobilinogen Urine Norm (Negative); pH Urine 5 (5-7)
[2021-10-09 16:33] VITALS: BP 123/81; PULSE 75; RESP 16; O2SAT 100
== END 2021-10-09 16:43 | disposition home or self-care (01) ==
PROVIDERS: Emergency Provider Physician Assistant; PCP Internal Medicine
DX: S00.93XA Contusion of unspecified part of head, initial encounter (principal); S20.211A Contusion of right front wall of thorax, initial encounter; M25.551 Pain in right hip; F03.90 Unspecified dementia, unspecified severity, without behavioral disturbance, psychotic disturbance, mood disturbance, and anxiety; W06.XXXA Fall from bed, initial encounter
CPT/HCPCS: 70450; 71101; 73502; 81003; 99282

== ENCOUNTER 2022-02-06 19:33 | Emergency (ER) | payer OTHER, SELFPAY ==
[2022-02-06 19:56] VITALS: BP 103/56; PULSE 91; RESP 18; TEMP 36.4; O2SAT 98; BMI 24.2
--- NOTE | 2022-02-06 19:57 | CTR_ITS ---
PROCEDURE INFORMATION: Exam: CT Head Without Contrast Exam date and time: 02/06/2022 8:56 PM Age: 61 years old Clinical indication: Altered mental status/memory loss; Patient HX: AMS. Confusion. TECHNIQUE: Imaging protocol: Computed tomography of the head without contrast. Radiation optimization: All CT scans at this facility use at least one of these dose optimization techniques: automated exposure control; mA and/or kV adjustment per patient size (includes targeted exams where dose is matched to clinical indication); or iterative reconstruction. COMPARISON: CT head wo con* [id number] 10/09/2021 2:42 PM RADIATION DOSE METRICS: Total DLP (mGy-cm): 885.67 FINDINGS: Brain: Moderate diffuse cortical volume loss. Mild hypodensities in supratentorial periventricular and subcortical white matter, consistent with microangiopathy. No intracranial hemorrhage. Cerebral ventricles: Stable chronic prominence of the lateral ventricles, most likely due to central volume loss. Paranasal sinuses: Visualized sinuses are unremarkable. No fluid levels. Mastoid air cells: Visualized mastoid air cells are well aerated. Vasculature: No hyperdense artery. Bones/joints: Unremarkable. No acute fracture. Soft tissues: Unremarkable. CT/CT head wo con* [id number] IMPRESSION: 1. Stable CT head. No acute intracranial abnormality.
--- NOTE | 2022-02-06 19:57 | XRR_ITS ---
PROCEDURE INFORMATION: Exam: XR Chest Exam date and time: 02/06/2022 7:13 PM Age: 61 years old Clinical indication: Shortness of breath; Additional info: AMS TECHNIQUE: Imaging protocol: XR of the chest. Views: 1 view. COMPARISON: CR XR ribs RT mn 3V w CXR1V [id number] 10/09/2021 2:22 PM FINDINGS: Lungs: Mild atelectasis in the left lung base. The right lung is clear. Pleural spaces: Unremarkable. No pleural effusion. No pneumothorax. Heart/Mediastinum: Unremarkable. No cardiomegaly. Bones/joints: Unremarkable. XR/XR chest 1V portable [id number] IMPRESSION: No acute findings.
--- NOTE | 2022-02-06 19:58 | ECG_ITS ---
[facility] Test Date: 2022-02-06 Pat Name: Cher Child Department: Room: Gender: Female Emg Technician: : 1960 Requested By: Wilfredo Trevino Order Number: [id number] Jesse MD: Marilyn Brown M.D. Measurements Intervals [place] Rate: 87 P: 76 NV: 149 QRS: -18 QRSD: 83 T: 62 QT: 354 QTc: 428 Interpretive Statements SINUS RHYTHM No previous ECG available for comparison Electronically Signed On 02-07-2022 17:52:03 CDT by Marilyn Brown M.D. [email or web address]
--- NOTE | 2022-02-06 19:59 | XRR_ITS ---
PROCEDURE INFORMATION: Exam: XR Abdomen Exam date and time: 02/06/2022 7:16 PM Age: 61 years old Clinical indication: Abdominal pain; Additional info: Constipation TECHNIQUE: Imaging protocol: XR of the abdomen. Views: Frontal supine view of the abdomen. 1 View. COMPARISON: CT abdomen pelvis w con* [id number] 08/17/2021 9:56 AM FINDINGS: Gastrointestinal tract: Large amount of stool scattered throughout the entire colon and in the rectum. No small bowel obstruction or distention. Intraperitoneal space: No visible pneumoperitoneum. Bones/joints: Lumbar curvature. XR/XR KUB [id number] IMPRESSION: 1. Large stool burden in the colon and rectum likely indicates constipation.
[2022-02-06 20:16] LABS: Basophils % 0.3 %; Eosinophils # 0.2 10^3/uL (0.0-0.8); Eosinophils % 2.5 %; Hemoglobin 10.5 g/dL (11.5-15.3); Lymphocytes # 1.9 10^3/uL (0.8-4.8); Mean Corpuscular HGB Conc 31.8 g/dL (30.0-36.0); Mean Corpuscular Hemoglobin 21.1 pg (28.0-34.0); Mean Corpuscular Volume 66.3 fl (81-99); Mean Platelet Volume 10.8 fL (7.4-10.4); Monocytes # 0.8 10^3/uL (0.2-0.9); Monocytes % 10.3 %; Neutrophils % 62.6 %; Nucleated Red Blood Cells % 0 %; Platelet Count 296 10^3/cmm (130-400); Red Blood Count 4.98 10^6/uL (4.1-5.3); Red Cell Distribution Width 15.2 % (12.1-15.1)
[2022-02-06 20:41] LABS: Urine Appearance Cloudy (CLEAR); Urine Color Yellow (Yellow)
[2022-02-06 20:42] LABS: Add Urine Culture? Yes; Add Urine Microscopic? YES; Bacteria Urine 2+ /hpf; Bilirubin Urine Neg (Negative); Blood Urine 2+ (Negative); Glucose Urine UA Norm (Normal); Ketones Urine Negative (Negative); Leukocyte Esterase Urine 2+ (Negative); Nitrate Urine Negative (Negative); Protein Urine Neg (Negative); RBC Urine 0-4 /hpf (0-2); Specific Gravity, Urine 1.025 (1.005-1.030); Squamous Epithelial Cell Urine 0-4 /hpf (0-5); Urobilinogen Urine Norm (Negative); WBC Urine 55-80 /hpf (0-5); pH Urine 5 (5-7)
[2022-02-06 20:45] LABS: Alanine Aminotransferase 22 U/L (0-33); Albumin Level 3.9 g/dL (3.5-5.2); Alkaline Phosphatase 209 IU/L (35-105); Anion Gap 16.6 (5-19); Aspartate Amino Transferase 37 U/L (0-32); Blood Urea Nitrogen 19 mg/dL (8-23); Calcium 9.2 mg/dL (8.5-10.5); Carbon Dioxide 27 mmol/L (22-29); Chloride 99 mmol/L (98-107); Globulin 3.2 g/dL (1.3-4.6); Glomerular Filtration Rate 161.7 mL/min (90-130); Glucose 103 mg/dL (65-115); Osmolality Calculated 291 mOsm/kg (285-295); Potassium 3.6 mmol/L (3.5-5.1); Sodium 139 mmol/L (136-145); Total Bilirubin 0.4 mg/dL (0.15-1.2); Total Protein 7.1 g/dL (6.6-8.7)
--- NOTE | 2022-02-06 21:21 | W.ED.AMS ---
HPI - Altered Mental Status General: Chief Complaint: Altered Mental Status Stated Complaint: ALLERGIC REACTION Time Seen by Provider: 02/06/22 19:53 PFSH ED PFSH: Medical History Dementia Psychiatric care Family History Grandfather Diabetes Grandmother Diabetes Social History Smoking and tobacco status: never smoked Course Vital Signs: Vital signs: Vital Signs Temperature 97.6 F 02/06/22 19:56 Pulse Rate 91 02/06/22 19:56 Respiratory Rate 18 02/06/22 19:56 Blood Pressure 103/56 02/06/22 19:56 Pulse Oximetry 98 02/06/22 19:56 MDM - Altered Mental Status Lab Data : 02/06/22 20:04 02/06/22 20:04 Laboratory Results WBC 8.0 10^3/uL (4.0-10.0) 02/06/22 20:04 RBC 4.98 10^6/uL (4.1-5.3) 02/06/22 20:04 Hgb 10.5 g/dL (11.5-15.3) L 02/06/22 20:04 Hct 33.0 % (37.0-47.0) L 02/06/22 20:04 MCV 66.3 fl (81-99) L 02/06/22 20:04 MCH 21.1 pg (28.0-34.0) L 02/06/22 20:04 MCHC 31.8 g/dL (30.0-36.0) 02/06/22 20:04 RDW 15.2 % (12.1-15.1) H 02/06/22 20:04 Plt Count 296 10^3/cmm (130-400) 02/06/22 20:04 MPV 10.8 fL (7.4-10.4) H 02/06/22 20:04 Neut % (Auto) 62.6 % 02/06/22 20:04 Lymph % (Auto) 24.0 % 02/06/22 20:04 [place] % (Auto) 10.3 % 02/06/22 20:04 Eos % (Auto) 2.5 % 02/06/22 20:04 Baso % (Auto) 0.3 % 02/06/22 20:04 Neut # (Auto) 5.00 10^3/uL (1.8-7.7) 02/06/22 20:04 Lymph # (Auto) 1.9 10^3/uL (0.8-4.8) 02/06/22 20:04 [place] # (Auto) 0.8 10^3/uL (0.2-0.9) 02/06/22 20:04 Eos # (Auto) 0.2 10^3/uL (0.0-0.8) 02/06/22 20:04 Baso # (Auto) 0.0 10^3/uL (0.0-0.1) 02/06/22 20:04 Nucleated RBC % (auto) 0 % 02/06/22 20:04 Nucleated RBCs # 0.0 /100WBC 02/06/22 20:04 Sodium 139 mmol/L (136-145) 02/06/22 20:04 Potassium 3.6 mmol/L (3.5-5.1) 02/06/22 20:04 Chloride 99 mmol/L (98-107) 02/06/22 20:04 Carbon Dioxide 27 mmol/L (22-29) 02/06/22 20:04 Anion Gap 16.6 (5-19) 02/06/22 20:04 BUN 19 mg/dL (8-23) 02/06/22 20:04 Creatinine 0.4 mg/dL (0.5-0.9) L 02/06/22 20:04 GFR Calculation 161.7 mL/min (90-130) H 02/06/22 20:04 Glucose 103 mg/dL (65-115) 02/06/22 20:04 Calculated Osmolality 291 mOsm/kg (285-295) 02/06/22 20:04 Calcium 9.2 mg/dL (8.5-10.5) 02/06/22 20:04 Total Bilirubin 0.4 mg/dL (0.15-1.2) 02/06/22 20:04 AST 37 U/L (0-32) H 02/06/22 20:04 ALT 22 U/L (0-33) 02/06/22 20:04 Alkaline Phosphatase 209 IU/L (35-105) H 02/06/22 20:04 Total Protein 7.1 g/dL (6.6-8.7) 02/06/22 20:04 Albumin 3.9 g/dL (3.5-5.2) 02/06/22 20:04 Globulin 3.2 g/dL (1.3-4.6) 02/06/22 20:04 Urine Color Yellow (Yellow) 02/06/22 20:14 Urine Appearance Cloudy (CLEAR) 02/06/22 20:14 Urine pH 5 (5-7) 02/06/22 20:14 Ur Specific [place] 1.025 (1.005-1.030) 02/06/22 20:14 Urine Protein Neg (Negative) 02/06/22 20:14 Urine Glucose (UA) Norm (Normal) 02/06/22 20:14 Urine Ketones Negative (Negative) 02/06/22 20:14 Urine Blood 2+ (Negative) H 02/06/22 20:14 Urine Nitrate Negative (Negative) 02/06/22 20:14 Urine Bilirubin Neg (Negative) 02/06/22 20:14 Urine Urobilinogen Norm mg/dL (Negative) 02/06/22 20:14 Ur Leukocyte Esterase 2+ (Negative) H 02/06/22 20:14 Urine RBC 0-4 /hpf (0-2) H 02/06/22 20:14 Urine WBC 55-80 /hpf (0-5) H 02/06/22 20:14 Ur Squamous Epith Cells 0-4 /hpf (0-5) H 02/06/22 20:14 Amorphous Sediment Not Reportable 02/06/22 20:14 Urine Bacteria 2+ /hpf (NONE) H 02/06/22 20:14 Discharge Plan Discharge Condition: Stable Prescriptions: No Action pramoxine-allantoin 1-1.5 % ointment See Rx Instructions topical .COMPLEX 0RF Rx Instructions: apply small dot to band aid and cover nail bed topical; haloperidol lactate [Haldol] 5 mg/mL solution 5 mg IM Q30M PRN (Reason: psychosis) 0RF Label Comments: pt not taking Rx Instructions: until symptoms of delerium controlled or stopped. Dispense syringes. haloperidol 5 mg tablet 5 mg PO BID PRN (Reason: agitation) 0RF Caltrate 600-D Plus Minerals 600 mg calcium- 800 unit-40 mg tablet,chewable 1 tab PO DAILY 1 Days Qty: 90 0RF Rx Instructions: to provide otc medication guar gum Packet 1 tbsp PO DAILY Qty: 75 5RF Rx Instructions: mix into at least 4 oz water or juice before administering to provide otc med quetiapine 400 mg tablet extended release 24 hr 400 mg PO .4-5 pm daily Qty: 30 0RF quetiapine 25 mg tablet See Rx Instructions .ROUTE .COMPLEX Qty: 90 0RF Dose Instruction: TAKE 1 TABLET BY MOUTH EVERY DAY NEEDED FOR WITHDRAWAL SYMPTOMS Rx Instructions: TAKE 1 TABLET BY MOUTH EVERY DAY NEEDED FOR WITHDRAWAL SYMPTOMS clindamycin phosphate 1 % gel 1 applic topical BID Qty: 30 1RF hydroxyzine HCl 10 mg tablet 10 mg PO TID PRN (Reason: itching) Qty: 30 2RF permethrin 5 % cream 1 applic topical ONCE 1 Days Qty: 60 0RF Rx Instructions: reapply in 14 days if lesions remain or new lesions form. magnesium citrate Solution 150 ml PO BID PRN (Reason: constipation) Qty: 296 0RF Miralax 17 gram/dose powder 17 g PO DAILY Qty: 510 0RF multivitamin Tablet 1 tab PO DAILY 0RF Colace 100 mg Capsule 100 mg PO DAILY 0RF Referrals: Errol Walsh MD [Primary Care Provider] - Coding Level of Care Code ED Front Desk Person for Fabiola Melgar
--- NOTE | 2022-02-06 21:27 | ED_ITS ---
HPI - Overdose General: Chief Complaint: Altered Mental Status Stated Complaint: ALLERGIC REACTION Time Seen by Provider: 02/06/22 19:53 Source: EMS Mode of arrival: EMS Limitations: altered mental status History of Present Illness: 61-year-old female who is here from assisted [facility]. They are concerned that she had an overdose on ivermectin. She has scabies has been doing permethrin has taken 3 doses of ivermectin they state that they thought she had a rash to her left leg on further exam it appears to be a contusion they gave her Atarax along with her nightly Seroquel. Review of Systems General: Reports: ROS unobtainable due to mental status PFSH ED PFSH: Medical History Dementia Psychiatric care Family History Grandfather Diabetes Grandmother Diabetes Social History Smoking and tobacco status: never smoked Physical Exam Const: COMMON NORMALS: no acute distress, healthy appearing and alert EXAM LIMITATIONS: altered mental status ORIENTATION/CONSCIOUSNESS: Yes oriented to person; not oriented to place and not oriented to time HENMT: COMMON NORMALS: normocephalic and atraumatic HEAD & SCALP: normocephalic and atraumatic Eye: COMMON NORMALS: Equal, round and reactive pupils present and EOMs intact bilaterally PUPIL: Yes Equal, round and reactive pupils present Neck/C-Spine: COMMON NORMALS: full ROM and supple Chest: COMMONS NORMALS: normal inspection of the chest and normal palpation of entire chest wall Resp: COMMON NORMALS: normal respiratory effort, No retractions, No use of accessory muscles and clear to auscultation bilaterally AUSCULTATION: clear to auscultation bilaterally Cardio: COMMON NORMALS: regular rate, regular rhythm and No murmurs present (Cardio) RATE: regular rate RHYTHM: regular rhythm GI: COMMON NORMALS: Normal to inspection, nondistended, normoactive bowel sounds present, Soft to palpation, non-tender and no masses PALPATION: Yes Soft to palpation Extremity: COMMON NORMALS: normal to inspection and full ROM OTHER: Abrasion noted to left leg no signs of rash Neuro: COMMON NORMALS: moves all extremities and no focal motor deficits SENSORIUM/ORIENTATION: Yes alert, Yes oriented to person, No oriented to place and No oriented to time Psych: COMMON NORMALS: mental status grossly normal, Normal thought process present and cooperative THOUGHT PROCESS: Normal thought process present Skin: COMMON NORMALS: no rashes or lesions noted and no wounds GENERAL SKIN EXAM: no rashes or lesions noted Course Vital Signs: Vital signs: Vital Signs Temperature 97.6 F 02/06/22 19:56 Pulse Rate 91 02/06/22 19:56 Respiratory Rate 18 02/06/22 19:56 Blood Pressure 97/67 02/06/22 23:11 Pulse Oximetry 98 02/06/22 22:23 MDM - Overdose Medical Decision Making Patient presents with altered mental status likely due to urinary tract infection along with medication that she had at night Atarax 10 Seroquel she is waking up now on actually a lot more verbal and at her baseline she has been on ivermectin for 3 days and today was her last day she has no signs of overdose due to that. She is stable for discharge return if worsening. Lab Data : 02/06/22 20:04 02/06/22 20:04 Radiology Impressions Chest X-Ray 02/06/22 19:57 IMPRESSION: No acute findings. Head CT 02/06/22 19:57 IMPRESSION: 1. Stable CT head. No acute intracranial abnormality. KUB X-Ray 02/06/22 19:59 IMPRESSION: 1. Large stool burden in the colon and rectum likely indicates constipation. Laboratory Results WBC 8.0 10^3/uL (4.0-10.0) 02/06/22 20:04 RBC 4.98 10^6/uL (4.1-5.3) 02/06/22 20:04 Hgb 10.5 g/dL (11.5-15.3) L 02/06/22 20:04 Hct 33.0 % (37.0-47.0) L 02/06/22 20:04 MCV 66.3 fl (81-99) L 02/06/22 20:04 MCH 21.1 pg (28.0-34.0) L 02/06/22 20:04 MCHC 31.8 g/dL (30.0-36.0) 02/06/22 20:04 RDW 15.2 % (12.1-15.1) H 02/06/22 20:04 Plt Count 296 10^3/cmm (130-400) 02/06/22 20:04 MPV 10.8 fL (7.4-10.4) H 02/06/22 20:04 Neut % (Auto) 62.6 % 02/06/22 20:04 Lymph % (Auto) 24.0 % 02/06/22 20:04 [place] % (Auto) 10.3 % 02/06/22 20:04 Eos % (Auto) 2.5 % 02/06/22 20:04 Baso % (Auto) 0.3 % 02/06/22 20:04 Neut # (Auto) 5.00 10^3/uL (1.8-7.7) 02/06/22 20:04 Lymph # (Auto) 1.9 10^3/uL (0.8-4.8) 02/06/22 20:04 [place] # (Auto) 0.8 10^3/uL (0.2-0.9) 02/06/22 20:04 Eos # (Auto) 0.2 10^3/uL (0.0-0.8) 02/06/22 20:04 Baso # (Auto) 0.0 10^3/uL (0.0-0.1) 02/06/22 20:04 Nucleated RBC % (auto) 0 % 02/06/22 20:04 Nucleated RBCs # 0.0 /100WBC 02/06/22 20:04 Sodium 139 mmol/L (136-145) 02/06/22 20:04 Potassium 3.6 mmol/L (3.5-5.1) 02/06/22 20:04 Chloride 99 mmol/L (98-107) 02/06/22 20:04 Carbon Dioxide 27 mmol/L (22-29) 02/06/22 20:04 Anion Gap 16.6 (5-19) 02/06/22 20:04 BUN 19 mg/dL (8-23) 02/06/22 20:04 Creatinine 0.4 mg/dL (0.5-0.9) L 02/06/22 20:04 GFR Calculation 161.7 mL/min (90-130) H 02/06/22 20:04 Glucose 103 mg/dL (65-115) 02/06/22 20:04 Calculated Osmolality 291 mOsm/kg (285-295) 02/06/22 20:04 Calcium 9.2 mg/dL (8.5-10.5) 02/06/22 20:04 Total Bilirubin 0.4 mg/dL (0.15-1.2) 02/06/22 20:04 AST 37 U/L (0-32) H 02/06/22 20:04 ALT 22 U/L (0-33) 02/06/22 20:04 Alkaline Phosphatase 209 IU/L (35-105) H 02/06/22 20:04 Total Protein 7.1 g/dL (6.6-8.7) 02/06/22 20:04 Albumin 3.9 g/dL (3.5-5.2) 02/06/22 20:04 Globulin 3.2 g/dL (1.3-4.6) 02/06/22 20:04 Urine Color Yellow (Yellow) 02/06/22 20:14 Urine Appearance Cloudy (CLEAR) 02/06/22 20:14 Urine pH 5 (5-7) 02/06/22 20:14 Ur Specific [place] 1.025 (1.005-1.030) 02/06/22 20:14 Urine Protein Neg (Negative) 02/06/22 20:14 Urine Glucose (UA) Norm (Normal) 02/06/22 20:14 Urine Ketones Negative (Negative) 02/06/22 20:14 Urine Blood 2+ (Negative) H 02/06/22 20:14 Urine Nitrate Negative (Negative) 02/06/22 20:14 Urine Bilirubin Neg (Negative) 02/06/22 20:14 Urine Urobilinogen Norm mg/dL (Negative) 02/06/22 20:14 Ur Leukocyte Esterase 2+ (Negative) H 02/06/22 20:14 Urine RBC 0-4 /hpf (0-2) H 02/06/22 20:14 Urine WBC 55-80 /hpf (0-5) H 02/06/22 20:14 Ur Squamous Epith Cells 0-4 /hpf (0-5) H 02/06/22 20:14 Amorphous Sediment Not Reportable 02/06/22 20:14 Urine Bacteria 2+ /hpf (NONE) H 02/06/22 20:14 Discharge Plan Discharge Patient Disposition: Home Clinical Impression: Dementia, Altered mental status, Acute cystitis Condition: Stable Prescriptions: New cephalexin 500 mg capsule 500 mg PO TID 7 Days Qty: 21 0RF No Action haloperidol 5 mg tablet 5 mg PO BID PRN (Reason: agitation) 0RF Caltrate 600-D Plus Minerals 600 mg calcium- 800 unit-40 mg tablet,chewable 1 tab PO DAILY 1 Days Qty: 90 0RF guar gum Packet 1 tbsp PO DAILY Qty: 75 5RF Rx Instructions: mix into at least 4 oz water or juice before administering to provide otc med quetiapine 400 mg tablet extended release 24 hr 400 mg PO .4-5 pm daily Qty: 30 0RF quetiapine 25 mg tablet See Rx Instructions .ROUTE .COMPLEX Qty: 90 0RF Dose Instruction: TAKE 1 TABLET BY MOUTH EVERY DAY NEEDED FOR WITHDRAWAL SYMPTOMS Rx Instructions: TAKE 1 TABLET BY MOUTH EVERY DAY NEEDED FOR WITHDRAWAL SYMPTOMS permethrin 5 % cream 1 applic topical ONCE 1 Days Qty: 60 0RF Rx Instructions: reapply in 14 days if lesions remain or new lesions form. multivitamin Tablet 1 tab PO DAILY 0RF docusate sodium [Colace] 100 mg Capsule 100 mg PO DAILY 0RF ivermectin 3 mg tablet See Rx Instructions .ROUTE .COMPLEX 0RF Rx Instructions: take 4 tabs by mouth every 2 weeks times 2 doses with food clobetasol 0.05 % Cream 1 applic TOPICAL DAILY 0RF acetaminophen-codeine 300-30 mg tablet 1 tab PO Q6H 0RF betamethasone dipropionate 0.05 % cream 1 applic TOPICAL DAILY 0RF Discharge Orders: Discharge ED (Routine); Ordered 02/06/22 Ordered By: Wilfredo Trevino Referrals: Errol Walsh MD [Primary Care Provider] - 1-3 days Discharge Diet: Advance as tolerated Discharge Activity: Resume usual activity Patient Instructions: Urinary Tract Infection in Women (ED) Coding Level of Care Code ED Foreign Banknote Teller Trader for Fabiola Fwd Exam Comprehensive
[2022-02-06] MEDS: cefTRIAXone 1,000 MG in lidocaine 1% 2.1 ML 1 MG IM (21:37)
[2022-02-06 22:23] VITALS: BP 91/64; O2SAT 98
[2022-02-06 23:11] VITALS: BP 97/67
[2022-02-07 19:24] LABS: Glucose Point of Care 101 mg/dL (70-110)
== END 2022-02-06 23:15 | disposition home or self-care (01) ==
PROVIDERS: Emergency Provider Emergency Medicine; PCP Internal Medicine
DX: F03.90 Unspecified dementia, unspecified severity, without behavioral disturbance, psychotic disturbance, mood disturbance, and anxiety (principal); N30.00 Acute cystitis without hematuria
CPT/HCPCS: 36416; 70450; 71045; 74018; 80053; 81001; 82962; 85025; 87077; 87086; 87186; 93005; 96372; 99284; J0696